=== PATIENT | male | born 1960 | race American Indian/Alaskan Native ===

== ENCOUNTER 2017-12-19 13:55 | Emergency (ER) | payer MEDICAID ==
[2017-12-19 14:11] VITALS: RESP 18; TEMP 97.6; O2SAT 100
[2017-12-19] MEDS ORDERED: Albuterol-Ipratrop 3 mg / 0.5 (3 ml) UD INH STA (14:27)
--- NOTE | 2017-12-19 14:28 | ED PDOC ---
HPI: General Adult Time Seen by Provider: 12/19/17 15:26 Chief Complaint (Nursing): Cough, Cold, Congestion Chief Complaint (Provider): Cough History Per: Patient History/Exam Limitations: no limitations Onset/Duration Of Symptoms: Days (x 2 weeks) Current Symptoms Are (Timing): Still Present Additional Complaint(s): 57 year old male presents to the ED complaining of a productive cough with associated sore throat, onset 2 weeks ago. Patient reports his cough is productive of white phlegm. He also complains of not sleeping because of the cough. No fever or chills. Denies chest pain or SOB. PMD: Dr. Jhonatan Cheng MD Past Medical History Reviewed: Historical Data, Nursing Documentation, Vital Signs Vital Signs: Last Vital Signs Temp 97.6 F 12/19/17 14:09 Pulse 96 H 12/19/17 14:09 Resp 18 12/19/17 14:09 BP 149/91 H 12/19/17 14:09 Pulse Ox 100 12/19/17 15:20 - Medical History PMH: HTN, Hyperlipidemia - Surgical History Surgical History: No Surg Hx - Family History Family History: States: No Known Family Hx - Social History Current smoker - smoking cessation education provided: No Alcohol: None Drugs: Denies - Home Medications Home Medications: Ambulatory Orders Medication Instructions Recorded Albuterol HFA [Ventolin HFA 90 1 puff IH ASDIR #1 unit 12/19/17 mcg/actuation (8 g)] Azithromycin [Zithromax] 250 mg PO DAILY #6 tab 12/19/17 Benzonatate 200 mg PO TID PRN #20 capsule 12/19/17 - Allergies Allergies/Adverse Reactions: Allergies Allergy/AdvReac Type Severity Reaction Status Date / Time No Known Allergies Allergy Verified 12/19/17 14:09 Review of Systems ROS Statement: Except As Marked, All Systems Reviewed And Found Negative Constitutional: Negative for: Fever, Chills ENT: Positive for: Throat Pain Cardiovascular: Negative for: Chest Pain Respiratory: Positive for: Cough. Negative for: Shortness of Breath Gastrointestinal: Negative for: Nausea, Vomiting Neurological: Negative for: Headache, Dizziness Physical Exam - Reviewed Nursing Documentation Reviewed: Yes Vital Signs Reviewed: Yes - Physical Exam Appears: Positive for: Well, Non-toxic, No Acute Distress Head Exam: Positive for: ATRAUMATIC, NORMAL INSPECTION, NORMOCEPHALIC Skin: Positive for: Normal Color. Negative for: Rash Eye Exam: Positive for: EOMI, Normal appearance, PERRL ENT: Positive for: Pharyngeal Erythema Neck: Positive for: Normal, Painless ROM, Supple Cardiovascular/Chest: Positive for: Regular Rate, Rhythm Respiratory: Positive for: Rhonchi (scattered bilaterally). Negative for: Respiratory Distress Extremity: Positive for: Normal ROM Neurologic/Psych: Positive for: Alert, Oriented - ECG O2 Sat by Pulse Oximetry: 100 (RA) Pulse Ox Interpretation: Normal - Other Rad CXR X-Ray: Interpreted by Me, Viewed By Me X-Ray Interpretation: no infiltrate, right hiatal hernia Nebulizer Treatments/Peak Flow - Duonebs Number of Bronchodilator Doses given?: 1 (duoneb) - Pre/Post Peak Flow Pre Treatment Peak Flow: 250 Post treatment Peak Flow: 250 - Steroid Treatment Steroid: Not Clinically Indicated - Clinical Response Clinical Response: Improved (peak flow not improved but patient feels better) Medical Decision Making Medical Decision Making: Time: 14:27 Initial Plan: --Chest x-ray --Duoneb 3 ml INH --Peak Flow pre/post --Rapid strep --Throat cx Rapid strep is negative. Patient feels better after duoneb. Rx given for zithromax, tessalon perles and ventolin inhaler. Patient instructed to take medicines as directed and follow up with primary doctor in 2-3 days. Repeat blood pressure still elevated. Patient is on HTN meds but is non- compliant with his meds. I stressed to patient importance of taking HTN med daily. Scribe Attestation: Documented by Maureen Raines, acting as a scribe for Clementina Nash PA-C Provider Scribe Attestation: All medical record entries made by the Scribe were at my direction and personally dictated by me. I have reviewed the chart and agree that the record accurately reflects my personal performance of the history, physical exam, medical decision making, and the department course for this patient. I have also personally directed, reviewed, and agree with the discharge instructions and disposition. Disposition - Clinical Impression Clinical Impression: Bronchitis - Patient ED Disposition Is Patient to be Admitted: No Counseled Patient/Family Regarding: Studies Performed, Diagnosis, Need For Followup, Rx Given - Disposition Referrals: formerly [facility] [Outside] Disposition: Routine/Home Disposition Time: 15:23 Condition: STABLE Additional Instructions: Take rx meds as directed. Follow up in 2-3 days with primary care doctor. Prescriptions: Albuterol HFA [Ventolin HFA 90 mcg/actuation (8 g)] 1 puff IH ASDIR #1 unit Azithromycin [Zithromax] 250 mg PO DAILY #6 tab Benzonatate 200 mg PO TID PRN #20 capsule PRN Reason: Cough Instructions: Acute Bronchitis Forms: [facility] (H[place]er)
[2017-12-19] MEDS ORDERED: Albuterol-Ipratrop 3 mg / 0.5 (3 ml) UD ONE (14:40)
[2017-12-19 15:25] VITALS: BP 141/86; PULSE 97
--- NOTE | 2017-12-19 18:04 | RAD ---
HISTORY: cough COMPARISON: Chest radiographs 10/03/2010. TECHNIQUE: Chest PA and lateral FINDINGS: LUNGS: Overlap of the anterior left 5th and posterior left 8th ribs may be causing increased density at the inferior left lung zone though trace patchy infiltrate is not completely excluded here. Clinically correlate. Remaining lung nieves appear clear. PLEURA: No significant pleural effusion identified. No pneumothorax apparent. CARDIOVASCULAR: Normal. OSSEOUS STRUCTURES: No significant abnormalities. VISUALIZED UPPER ABDOMEN: Normal. OTHER FINDINGS: None. IMPRESSION: Trace artifact versus early infiltrate left base as discussed above. The remainder the examination is unremarkable and stable.
== END 2017-12-19 15:31 | disposition home or self-care (01) ==
LOC: H.ER 13:55
DX: J40 Bronchitis, not specified as acute or chronic (principal); E78.5 Hyperlipidemia, unspecified; I10 Essential (primary) hypertension

== ENCOUNTER 2018-10-26 15:24 | Emergency (ER) | payer MEDICAID ==
[2018-10-26 15:34] VITALS: TEMP 98.3
[2018-10-26] MEDS ORDERED: Sodium Chloride 0.9% 1,000 ML IV STA (16:10)
[2018-10-26 16:24] LABS: BASO % 0.2 % (0.0-2.0); EOS # 0.1 K/uL (0.0-0.7); EOS % 0.9 % (0.0-4.0); HEMOGLOBIN 13.9 g/dL (12.0-18.0); LYMPH # 3.8 K/uL (1.0-4.3); LYMPH % 43.7 % (20.0-40.0); MEAN CELL VOLUME 84.9 fl (80.0-94.0); MEAN CORPUSCULAR HEMOGLOBIN 27.6 pg (27.0-31.0); MEAN CORPUSCULAR HGB CONC 32.5 g/dL (33.0-37.0); MEAN PLATELET VOLUME 7.7 fl (7.2-11.7); MONO # 1.4 K/uL (0.0-0.8); MONO % 16.4 % (0.0-10.0); NEUT # 3.3 K/uL (1.8-7.0); NEUT % 38.8 % (50.0-75.0); NRBC % 0.1 % (0.0-0.0); RBC 5.04 Mil/uL (4.40-5.90); RED CELL DISTRIBUTION WIDTH 15.2 % (11.5-14.5); WHITE BLOOD COUNT 8.6 K/uL (4.8-10.8)
[2018-10-26 16:36] LABS: ALB/GLOB RATIO 0.7 (1.0-2.1); ALBUMIN 4.3 g/dL (3.5-5.0); CALCIUM 9.9 mg/dL (8.4-10.2)
--- NOTE | 2018-10-26 17:00 | ED PDOC ---
HPI: Abdomen Time Seen by Provider: 10/26/18 15:45 Chief Complaint (Nursing): GI Problem Chief Complaint (Provider): GI Problem History Per: Patient History/Exam Limitations: no limitations Onset/Duration Of Symptoms: Persistent (x3 weeks), Worse Since (1 week) Current Symptoms Are (Timing): Still Present Additional Complaint(s): 58 year old male with pmHx of HTN and HCL, presents to ED for an evaluation of 20 episodes of watery, nonbloody diarrhea ongoing for 3 weeks but worsen in the last week. Patient states symptoms were improving after initial 5 days but then reoccurred with unintentional weight loss (7 lbs), nausea, mild abdominal cramping, decrease in urine output with dark coloration. Symptoms are exacerbated with eating and patient reports feeling dehydrated. Of note, patient was prescribed doxycycline 1 month ago to prepare for a gum surgery, however, he discontinued use with onset of diarrhea. Otherwise, he denies fever, chills, vomiting, black stools, recent travel, or BRAT diet. PCP: Dr. Yonatan Grayson Past Medical History Reviewed: Historical Data, Nursing Documentation, Vital Signs Vital Signs: Last Vital Signs Temp 98.3 F 10/26/18 15:30 Pulse 92 H 10/26/18 15:30 Resp 18 10/26/18 15:30 BP 147/95 H 10/26/18 15:30 Pulse Ox 100 10/26/18 15:30 - Medical History PMH: HTN, Hyperlipidemia - Surgical History Surgical History: No Surg Hx - Family History Family History: States: Stroke, CAD, Hypertension - Social History Current smoker - smoking cessation education provided: No - Home Medications Home Medications: Ambulatory Orders Medication Instructions Recorded Albuterol HFA [Ventolin HFA 90 1 puff IH ASDIR #1 unit 12/19/17 mcg/actuation (8 g)] Azithromycin [Zithromax] 250 mg PO DAILY #6 tab 12/19/17 RX: Benzonatate 200 mg PO TID PRN #20 capsule 12/19/17 Atropine/Diphenoxylate [Lonox 2 tab PO QID PRN #30 tab 10/26/18 0.025 MG-2.5 MG] Ciprofloxacin [Cipro] 1 tab PO BID #20 tab 10/26/18 Saccharomyces Boulardi [Florastor] 500 mg PO BID #28 cap 10/26/18 metroNIDAZOLE [Flagyl] 500 mg PO TID #30 tab 10/26/18 - Allergies Allergies/Adverse Reactions: Allergies Allergy/AdvReac Type Severity Reaction Status Date / Time No Known Allergies Allergy Verified 12/19/17 14:09 Review of Systems ROS Statement: Except As Marked, All Systems Reviewed And Found Negative (as per HPI) Constitutional: Positive for: Weight loss (unintentional). Negative for: Fever, Chills Gastrointestinal: Positive for: Nausea, Abdominal Pain (cramps mildly), Diarrhea. Negative for: Vomiting, Melena Genitourinary Male: Positive for: Other (decreased urine output with dark color) Physical Exam - Reviewed Nursing Documentation Reviewed: Yes Vital Signs Reviewed: Yes - Physical Exam Appears: Positive for: No Acute Distress Head Exam: Positive for: ATRAUMATIC, NORMOCEPHALIC Skin: Positive for: Warm, Dry Eye Exam: Positive for: EOMI, PERRL ENT: Positive for: Other (tacky mucous membranes) Neck: Positive for: Painless ROM, Supple Cardiovascular/Chest: Positive for: Regular Rate, Rhythm. Negative for: Murmur Respiratory: Positive for: Normal Breath Sounds. Negative for: Respiratory Distress Gastrointestinal/Abdominal: Positive for: Bowel Sounds (hyperactive), Soft. Negative for: Tenderness, Mass, Guarding, Rebound Back: Positive for: Normal Inspection. Negative for: Muscle Spasm Extremity: Positive for: Normal ROM. Negative for: Deformity Lymphatic: Negative for: Adenopathy Neurologic/Psych: Positive for: Alert. Negative for: Motor/Sensory Deficits - Laboratory Results Result Diagrams: 10/26/18 16:20 10/26/18 16:20 - ECG O2 Sat by Pulse Oximetry: 100 (RA) Pulse Ox Interpretation: Normal Medical Decision Making Medical Decision Making: Time: 1608 Initial Impression: Diarrhea Differential diagnosis includes but not limited to: c-diff colitis; infectious diarrhea; antibiotic-associated diarrhea; dehydration; electrolyte abnormality. Initial Plan: * Labs * IV fluids * Blood culture * OVA and parasite * Stool culture * C Diff toxin AB Lab demonstrate elevated BUN/Cr and but no emergently significant abnormalities. DW pt findings. He continues to have an unremarkable exam and no distress. Stable for discharge. Advised to continue hydrating at homew and to request GI followup via PMD. Scribe Attestation: Documented by Matilda Watt, acting as a scribe for Clementina Melgoza MD. Provider Scribe Attestation: All medical record entries made by the Scribe were at my direction and personally dictated by me. I have reviewed the chart and agree that the record accurately reflects my personal performance of the history, physical exam, medical decision making, and the department course for this patient. I have also personally directed, reviewed, and agree with the discharge instructions and disposition. Disposition - Clinical Impression Clinical Impression: Diarrhea - Disposition Referrals: Jhonatan Grayson MD [Staff Provider] - (FOLLOW UP WITH DR GRAYSON WITHIN A WEEK) Disposition: Routine/Home Disposition Time: 20:00 Condition: STABLE Additional Instructions: DRINK PLENTY OF HYDRATING FLUIDS TAKE MEDICATIONS PRESCRIBED FOLLOWUP WITH DR GRAYSON OR [employer] [facility] IN 48 HOURS FOR REEVALUATION Prescriptions: Atropine/Diphenoxylate [Lonox 0.025 MG-2.5 MG] 2 tab PO QID PRN #30 tab PRN Reason: diarrhea Ciprofloxacin [Cipro] 1 tab PO BID #20 tab metroNIDAZOLE [Flagyl] 500 mg PO TID #30 tab Saccharomyces Boulardi [Florastor] 500 mg PO BID #28 cap Instructions: Diarrhea in Adolescents and Adults, Dehydration, Adult (DC) Forms: [facility] ED School/Work Excuse
[2018-10-26] MEDS ORDERED: Atropine-Diphenoxylate 0.025-2.5 mg Tab PO STA (19:59)
[2018-10-26] MEDS ORDERED: Atropine-Diphenoxylate 0.025-2.5 mg Tab ONE (20:09)
[2018-10-26 20:33] VITALS: BP 161/98; PULSE 82; RESP 19
[2018-10-30 19:34] VITALS: O2SAT 100
== END 2018-10-26 20:33 | disposition home or self-care (01) ==
LOC: H.ER 15:24
DX: R19.7 Diarrhea, unspecified (principal)
CPT/HCPCS: 80053; 83605; 83735; 84100; 85025; 87040; 87045; 87177; 87209; 87230; 99284; J7030